=== PATIENT | female | born 2000 | race Caucasian/White ===

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

== ENCOUNTER 2021-03-04 13:51 | Emergency (ER) | payer OTHER ==
[2021-03-04 14:15] VITALS: BP 117/80; PULSE 107; TEMP 98.2; BMI 20.7
[2021-03-04] MEDS ORDERED: FAMOTIDINE 20 MG TABLET PO ONE (15:04)
[2021-03-04] MEDS ORDERED: diphenhydrAMINE HCL 25 MG CAPSULE (FP) PO ONE ×2 (15:04→15:08)
[2021-03-04] MEDS ORDERED: predniSONE 20 MG TABLET (UD) PO ONE (15:04)
[2021-03-04] MEDS ORDERED: FAMOTIDINE 20 MG TABLET ONE (15:08)
[2021-03-04] MEDS ORDERED: predniSONE 20 MG TABLET (UD) ONE (15:08)
== END 2021-03-04 16:40 | disposition home or self-care (01) ==
LOC: JER 13:51
DX: L50.0 Allergic urticaria (principal); T78.40XA Allergy, unspecified, initial encounter
CPT/HCPCS: 99283-25

== ENCOUNTER 2021-04-30 18:15 | Emergency (ER) | payer OTHER ==
[2021-04-30 18:30] VITALS: BMI 21.1
[2021-04-30] MEDS ORDERED: FAMOTIDINE 20 MG/50 ML IVPB 20 MG/50 ML MG IVPB ONE ×2 (18:45→19:04)
[2021-04-30] MEDS ORDERED: methylPREDNISolone NA SUCC 125 MG/2 ML VIAL IVPB ONE (18:45)
[2021-04-30] MEDS ORDERED: ACETAMINOPHEN 1000 MG/100 ML BAG IVPB ONE (18:46)
[2021-04-30] MEDS ORDERED: ACETAMINOPHEN INJECTION 100 ML IVPB ONE (18:50)
[2021-04-30] MEDS ORDERED: methylPREDNISolone NA SUCC 125 MG/2 ML VIAL ONE (18:51)
[2021-04-30] MEDS ORDERED: SODIUM CHLORIDE 0.9% 500 ML INFUS.BAG IV ONE ×2 (18:52→21:08)
[2021-04-30 21:02] LABS: EPI CELLS 25 /uL (0-25.1); HYALINE CASTS 0 /uL (0-3.1); URINE APPEARANCE CLEAR; URINE BACTERIA 5021 /uL (0-1359); URINE BILIRUBIN NEGATIVE (NEGATIVE); URINE COLOR YELLOW; URINE GLUCOSE (UA) NEGATIVE (NEGATIVE); URINE KETONE NEGATIVE (NEGATIVE); URINE LEUK ESTERASE 1+ (NEGATIVE); URINE NITRITE NEGATIVE (NEGATIVE); URINE PROTEIN NEGATIVE (NEGATIVE); URINE RBC 4 /uL (0-23.9); URINE UROBILINOGEN 0.2 mg/dL (0.2-1.0); URINE WBC 45 /uL (0-25.8)
[2021-04-30] MEDS ORDERED: IBUPROFEN 600 MG TABLET (FP) PO ONE (21:22)
[2021-04-30] MEDS ORDERED: IBUPROFEN 400 MG TABLET (FP) PO ONE (21:26)
[2021-04-30] MEDS ORDERED: CEFTRIAXONE 1 GM in DEXTROSE 5%-WATER - 50 ML IVPB ONE (21:32)
[2021-04-30] MEDS ORDERED: CEFTRIAXONE 1 GM/50 ML BAG ONE (21:36)
[2021-04-30 22:00] LABS: VENOUS BASE EXCESS -3.7 mmol/L (-2-2); VENOUS O2 SATURATION 96.9 % (70-80); VENOUS PCO2 34.1 mmHg (38-52); VENOUS PH 7.393 (7.310-7.410)
[2021-04-30 22:01] VITALS: TEMP 99.1
[2021-04-30 22:01] LABS: HEMATOCRIT 39.8 % (32.4-45.2); HEMOGLOBIN 13.4 GM/dL (10.7-15.3); MCHC 33.6 g/dl (32.0-36.0); MEAN CELL VOLUME 80.3 fl (80-96); MEAN PLT VOLUME 8.7 fl (7.5-11.1); PLATELET COUNT 249 10^3/uL (134-434); RBC 4.96 M/mm3 (3.60-5.2); RDW 14.2 % (11.6-15.6); WHITE BLOOD COUNT 8.8 K/mm3 (4.0-10.0)
[2021-04-30 22:10] LABS: INR 1.22 (0.83-1.09); PROTHROMBIN TIME (PATIENT) 13.7 SEC (9.7-13.0)
[2021-04-30 22:12] LABS: ACTIVATED PTT 27.6 SECONDS (25.2-36.5)
[2021-04-30 22:30] LABS: CHLORIDE 106 mmol/L (98-107); SODIUM 138 mmol/L (136-145)
[2021-04-30 22:32] LABS: ALBUMIN 3.3 g/dl (3.4-5.0); ANION GAP 12 MMOL/L (8-16); BLOOD UREA NITROGEN 7.5 mg/dL (7-18); CALCIUM 8.5 mg/dL (8.5-10.1); CO2 19 mmol/L (21-32)
[2021-04-30 22:33] LABS: GLUCOSE,RANDOM 130 mg/dL (74-106)
[2021-04-30 22:35] LABS: CREATININE 0.7 mg/dL (0.55-1.3); SGOT/AST 14 U/L (15-37)
[2021-04-30 22:36] LABS: ANISOCYTOSIS 1+; MACROCYTOSIS 0; PLATELET ESTIMATE NORMAL
[2021-04-30 22:37] LABS: BILIRUBIN,TOTAL 0.6 mg/dL (0.2-1); TOT PROT 6.8 g/dl (6.4-8.2)
[2021-04-30 22:38] LABS: ALK PHOS 71 U/L (45-117)
[2021-04-30 22:45] VITALS: BP 104/63
[2021-04-30 22:48] LABS: SGPT/ALT 14 U/L (13-61)
[2021-04-30 23:43] VITALS: PULSE 98
== END 2021-05-01 00:05 | disposition home or self-care (01) ==
LOC: JER 18:15
PROC: 3E0333Z Introduction of Anti-inflammatory into Peripheral Vein, Percutaneous Approach (ICD-10-PCS; principal; 2021-04-30)
PROC: 3E03329 Introduction of Other Anti-infective into Peripheral Vein, Percutaneous Approach (ICD-10-PCS; 2021-04-30)
PROC: 3E033GC Introduction of Other Therapeutic Substance into Peripheral Vein, Percutaneous Approach (ICD-10-PCS; 2021-04-30)
PROC: 3E033GC Introduction of Other Therapeutic Substance into Peripheral Vein, Percutaneous Approach (ICD-10-PCS; 2021-04-30)
DX: N39.0 Urinary tract infection, site not specified (principal); R31.9 Hematuria, unspecified; T78.40XA Allergy, unspecified, initial encounter
CPT/HCPCS: 36415; 71045-TC-FY; 80053; 81003; 82803; 83605; 84484; 84703; 85025; 85610; 85730; 86850; 86900; 86901; 87040; 87804; 87807; 93005; 93010; 99285-25; C9803; J0131; U0003; U0005